=== PATIENT | male | born 1945 | race Caucasian/White ===

== ENCOUNTER → 2019-07-30 11:13 | Outpatient (CLI) | payer MEDICARE, SELFPAY ==
--- NOTE | 2019-07-30 | DI.CT.S_ITS ---
PROCEDURE: CT ABDOMEN W CON INDICATIONS: Left upper quadrant pain TECHNIQUE: After the administration of oral and intravenous contrast, 5 mm thick sections acquired from the diaphragms to the iliac crests. 5 mm thick coronal and sagittal reformats were acquired. For radiation dose reduction, the following was used: automated exposure control, adjustment of mA and/or kV according to patient size. COMPARISON: None. FINDINGS: Image quality: Excellent. Lung bases: Lung bases are clear. Heart size is normal. Solid organs: Liver is normal in size and enhancement. Multiple tiny low density left lobe liver lesions may represent cysts versus hemangiomata. Gallbladder is unremarkable. Biliary system is non dilated. Pancreas enhances normally. Spleen is normal in size and enhancement. No adrenal nodules. Kidneys are normal in size, without hydronephrosis. Peritoneum and bowel: Question wall thickening and narrowing of the proximal to mid descending colon versus peristalsis without proximal bowel dilatation. No free fluid or air. Nodes and vessels: No retroperitoneal or mesenteric adenopathy by size criteria. Aorta and inferior vena cava are normal in size. Bones: No suspicious bony lesions. No vertebral body compression fractures. 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 It may potentially represent bony fragmentation of the facet or partially calcified/ossified facet joint cyst. Miscellaneous: No ventral hernias. IMPRESSION: 1. Question focal wall thickening and narrowing of the proximal to mid descending colon versus peristalsis. 2. Note made of a benign-appearing process subjacent to the left L4-L5 facet resulting in severe stenosis of the left side of the canal at this level. Comment: If this patient has not had recent colonoscopy, would suggest colonoscopy to exclude a left colonic lesion. Dictated by: Frankie Reinoso M.D. on 07/30/2019 at 13:44 Approved by: Frankie Reinoso M.D. on 07/30/2019 at 14:00
[2019-07-30 12:17] LABS: BUN Creatinine Ratio 18.2 (6-22); Blood Urea Nitrogen 16 mg/dL (9-20); Estimated Glomerular Filt Rate > 60.0 mL/min (>60)
== END ==
PROVIDERS: Referring Provider Student in an Organized Health Care Education/Training Program; Visit Provider Student in an Organized Health Care Education/Training Program
DX: R10.12 Left upper quadrant pain (principal); R11.0 Nausea; M48.061 Spinal stenosis, lumbar region without neurogenic claudication
CPT/HCPCS: 36415; 74160; 82565; 84520; 87045; 87177; 87329; 87899; Q9967

== ENCOUNTER → 2019-09-30 09:14 | Outpatient (CLI) | payer MEDICARE, SELFPAY ==
[2019-10-02 10:39] LABS: H. Pylori Antigen Stool Negative (Negative)
== END ==
PROVIDERS: Referring Provider Student in an Organized Health Care Education/Training Program; Visit Provider Student in an Organized Health Care Education/Training Program
DX: R10.12 Left upper quadrant pain (principal); R11.0 Nausea; K29.60 Other gastritis without bleeding
CPT/HCPCS: 87338

== ENCOUNTER → 2022-01-06 10:44 | Outpatient (CLI) | payer MEDICARE, SELFPAY ==
[2022-01-06 13:26] LABS: Prostate Specific Antigen Scrn 1.48 ng/mL (0.1-4.0)
== END ==
PROVIDERS: PCP Family Medicine; Referring Provider Family Medicine; Visit Provider Family Medicine
DX: Z12.5 Encounter for screening for malignant neoplasm of prostate (principal)
CPT/HCPCS: 36415; G0103

== ENCOUNTER → 2022-06-10 10:08 | Outpatient (CLI) | payer MEDICARE, SELFPAY ==
[2022-06-10 10:55] LABS: Influenza A - CEPHEID Flu A NEGATIVE (NEGATIVE); Influenza B - CEPHEID Flu B NEGATIVE (NEGATIVE); Respiratory Syncytial Virus Negative (Negative)
[2022-06-10 10:56] LABS: COVID-19 CEPHEID 4-PLEX PCR Negative (Negative)
== END ==
PROVIDERS: PCP Family Medicine; Visit Provider Registered Nurse
DX: R05.1 Acute cough (principal); Z20.822 Contact with and (suspected) exposure to COVID-19
CPT/HCPCS: 0241U

== ENCOUNTER → 2022-07-19 09:00 | Outpatient (CLI) | payer MEDICARE, SELFPAY ==
[2022-07-19 09:38] LABS: Add Manual Diff / Slide Review NO; Basophils Absolute Auto 0 /uL (0-100); Basophils Percent Auto 0.9 % (0-2); Eosinophils Absolute Auto 200 /uL (0-450); Eosinophils Percent Auto 3.2 % (2-4); Hematocrit 42.9 % (41-53); Hemoglobin 14.4 g/dL (13.5-17.5); Lymphocytes Absolute Auto 1600 /uL (1100-4500); Lymphocytes Percent Auto 32.3 % (25-40); Mean Corpuscular HGB Conc 33.5 % (30-36); Mean Corpuscular Hemoglobin 30.1 PG (26-34); Mean Corpuscular Volume 89.8 fL (80-100); Monocytes Absolute Auto 500 /uL (0-900); Monocytes Percent Auto 10.7 % (3-14); Neutrophils Absolute Auto 2600 /uL (1500-7000); Neutrophils Percent Auto 52.9 % (50-75); Platelet Count 155 X10^3/uL (150-400); Red Blood Cell Count 4.78 X10^6/uL (4.5-5.9); Red Cell Distribution Width 14.5 % (11.6-14.8); White Blood Cell Count 4.9 X10^3/uL (4.5-11.0)
[2022-07-19 10:10] LABS: Alanine Aminotransferase 24 IU/L (<50); Albumin 4.5 g/dL (3.5-5.0); Albumin Globulin Ratio 1.4 (1.0-2.8); Alkaline Phosphatase 56 U/L (38-126); Aspartate Aminotransferase 32 IU/L (17-59); BUN Creatinine Ratio 18.2 (6-22); Bilirubin Total 0.7 mg/dL (0.2-1.3); Blood Urea Nitrogen 16 mg/dL (9-20); Calcium 9.6 mg/dL (8.4-10.2); Carbon Dioxide 30 mmol/L (22-32); Chloride 98 mmol/L (98-107); Cholesterol 164 mg/dL (140-199); Estimated Glomerular Filt Rate > 60 mL/min (>60); Globulin 3.3 g/dL (1.7-4.1); Glucose 112 mg/dL (80-110); HDL Cholesterol 66 mg/dL (40-60); HEMOLYSIS < 15 (0-50); LDL Cholesterol Calculated 74 mg/dL (<100); Potassium 3.8 mmol/L (3.4-5.1); Sodium 137 mmol/L (137-145); Total Protein 7.8 g/dL (6.3-8.2); Triglycerides 119 mg/dL (35-150)
[2022-07-19 10:13] LABS: Creatinine Urine Random 95.7 mg/dL
[2022-07-19 10:14] LABS: Microalbumin Urine Random < 0.6 mg/dL (0-1.6)
[2022-07-19 10:38] LABS: Prostate Specific Antigen Scrn 1.61 ng/mL (0.1-4.0); TSH w/ Reflex to FT4 1.69 uIU/mL (0.47-4.68)
== END ==
PROVIDERS: PCP Family Medicine; Referring Provider Family Medicine; Visit Provider Family Medicine
DX: I10 Essential (primary) hypertension (principal); Z12.5 Encounter for screening for malignant neoplasm of prostate; E78.2 Mixed hyperlipidemia; N40.0 Benign prostatic hyperplasia without lower urinary tract symptoms
CPT/HCPCS: 36415; 80053; 80061; 82043; 82570; 84443; 85025; G0103

== ENCOUNTER 2022-10-13 13:56 | Day surgery (SDC) | payer MEDICARE, SELFPAY ==
--- NOTE | 2022-10-13 | PATH_ITS ---
[facility] Accession Number: [id number] No. of containers..02 Tissue . 01 Material submitted: . PART A: sigmoid colon - SIGMOID POLYP PART B: rectum - RECTAL POLYP . 01 Diagnosis: A. Sigmoid Colon Polyp: Colonic mucosa with no diagnostic abnormality, consistent with polypoid redundancy. Negative for serrated lesion, dysplasia or malignancy. Additional step sections examined. . B. Rectal Polyp: Hyperplastic polyp. MRV 10/21/2022 1433 Local . 01 Electronically signed: . Albert Salguero MD, PhD, Pathologist NPI- [id number] . 01 Gross description: . Part A: SIGMOID POLYP: Received in formalin is 1 fragment(s) of gutierrez, soft tissue measuring 0.3 x 0.3 x 0.2 cm submitted entirely in 1 cassette(s) Part B: RECTAL POLYP: Received in formalin is 1 fragment(s) of gutierrez, soft tissue measuring 0.3 x 0.3 x 0.2 cm submitted entirely in 1 cassette(s) /FADIA 10/18/20222001 Local . 01 Pathologist provided ICD-10: K63.5, K62.1 . 01 CPT . 185363, 153995 Specimen Comment: A courtesy copy of this report has been sent to [phone] Performed at: 01 [facility] [address] [place] [address], [place], [place] [id number] MD Werner Vazquez MD Phone: [phone]
[2022-10-13 14:31] VITALS: BP 122/70; PULSE 78; RESP 16; TEMP 36.3; O2SAT 99; BMI 26.4
[2022-10-13] MEDS: LACTATED RINGERS 1,000 ML 42 ML IV (14:46)
--- NOTE | 2022-10-13 16:03 | PM.HP.1 ---
History of Present Illness History of Present Illness Date Patient Seen: 10/13/22 Time Patient Seen: 16:03 Chief complaint: SDC Narrative: Jaqueline is a 77-year-old man who is here for colonoscopy. He last had 1 about 4 years ago and polyps were removed. [facility] Medical History Allergies (~1950) Benign prostate hyperplasia (~2017) Chicken pox (~1949) Chronic low back pain Hyperlipidemia Hypertension Measles (~1955) Mumps (~1949) Skin cancer (~2018) Tinnitus (~2005) Surgical History Anesthesia History of hip replacement (~2015) Family History Father Dementia Mother Cancer Social History household members: none Smoking Status: Former smoker alcohol intake: current Meds Home Medications and Allergies Home Medications Medication Instructions Recorded Confirmed Type lisinopril 10 mg tablet 10 mg PO DAILY #90 tabs 07/28/22 10/13/22 Rx latanoprost 0.005 % eye drops drp EYE-BOTH 08/15/22 08/15/22 History Allergies Allergy/AdvReac Type Severity Reaction Status Date / Time No Known Drug Allergies Allergy Verified 10/13/22 14:27 Exam Vital Signs (past 8 hours): - 10/13/22 14:31 Temperature 97.3 F L Pulse Rate 78 Respiratory Rate 16 Blood Pressure 122/70 Pulse Oximetry 99 Oxygen Delivery Method Room Air Oxygen Delivery Method Room Air Const General: healthy appearing and No acute distress Assessment & Plan Assessment and plan (1) Colon cancer screening: Status: Acute Plan We reviewed the risks and benefits of colonoscopy for colon cancer screening and he would like to proceed.
--- NOTE | 2022-10-13 16:49 | PM.OP.COLON ---
Operative Date/Time/Diagnoses Date of procedure: 10/13/22 Time of procedure: 16:49 Pre-op diagnosis: History of polyps Post-op diagnosis: same Procedure & Clinicians Study performed: Colonoscopy Same procedure as scheduled: Yes Surgeon: Donal Watermna Procedure Notes Procedure in detail: Surgeon: Donal Waterman MD Anesthesia: Boston Mckeon CRNA Procedure: The patient was brought to the endoscopy suite, placed in left lateral decubitus position. The patient was connected to monitoring devices. A time-out was performed. Sedation was administered. Once the patient was adequately sedated, a digital rectal exam was performed and was normal. The scope was then inserted and advanced with some difficulty to the cecum where the appendiceal orifice was identified and photographed. Colon was quite long and tortuous. The scope was then slowly withdrawn over greater than 6 minutes. The mucosa was thoroughly inspected. There was a 5 mm polyp in the sigmoid colon removed with the Jumbo forceps. There was a 6 mm polyp in the rectum removed with the Jumbo forceps. The scope was retroflexed in the rectum. No other abnormalities were seen. The scope was straightened and removed. The patient was awakened and brought to recovery. Scope withdrawal time: 9 minutes Sedation time: 36 minutes EBL: 5 mL Findings: 5 mm polyp in the sigmoid colon and 6 mm polyp rectum. Post-procedure Disposition: PACU
[2022-10-13 16:51] VITALS: BP 114/67; PULSE 74; RESP 14; TEMP 36.3; O2SAT 99
[2022-10-13 16:57] VITALS: BP 118/62; PULSE 72; RESP 18; O2SAT 99
[2022-10-13 17:02] VITALS: BP 100/63; PULSE 66; RESP 14; TEMP 36.9; O2SAT 98
[2022-10-13 17:06] VITALS: BP 116/72; PULSE 71; RESP 16; TEMP 36.7; O2SAT 100
== END 2022-10-13 17:25 | disposition home or self-care (01) ==
PROVIDERS: PCP Family Medicine; Referring Provider Surgery; Visit Provider Surgery
PROC: 0DJD8ZZ Inspection of Lower Intestinal Tract, Via Natural or Artificial Opening Endoscopic (ICD-10-PCS; CPT 45378; principal; 2022-10-13 15:00)
DX: Z12.11 Encounter for screening for malignant neoplasm of colon (principal); Z86.010 Personal history of colon polyps
CPT/HCPCS: 45380; J2704

== ENCOUNTER → 2022-12-24 09:44 | Outpatient (CLI) | payer MEDICARE, SELFPAY ==
[2022-12-24 11:20] LABS: Cholesterol 222 mg/dL (140-199); HDL Cholesterol 59 mg/dL (40-60); LDL Cholesterol Calculated 137 mg/dL (<100); Triglycerides 132 mg/dL (35-150)
[2022-12-24 11:53] LABS: Testosterone 346 ng/dL (71.8-623)
== END ==
PROVIDERS: PCP Family Medicine; Referring Provider Family Medicine; Visit Provider Family Medicine
DX: Z79.899 Other long term (current) drug therapy (principal); N40.0 Benign prostatic hyperplasia without lower urinary tract symptoms; E78.5 Hyperlipidemia, unspecified; I10 Essential (primary) hypertension
CPT/HCPCS: 36415; 80061; 84403

== ENCOUNTER → 2023-04-03 12:03 | Outpatient (CLI) | payer MEDICARE, SELFPAY ==
[2023-04-03 13:51] LABS: Appearance Urine UA CLEAR; Bilirubin Urine UA NEGATIVE (NEGATIVE); Color Urine UA YELLOW; Glucose Urine UA NEGATIVE (Negative); Ketones Urine UA NEGATIVE (NEGATIVE); Leukocyte Esterase Urine UA NEGATIVE (NEGATIVE); Nitrite Urine UA NEGATIVE (Negative); Occult Blood Urine UA NEGATIVE (Negative); Protein Urine UA NEGATIVE (Negative); Specific Gravity Urine UA <=1.005 (1.000-1.035); Urobilinogen Urine UA 0.2 E.U./dL (0.2); pH Urine UA 6.5 (4.5-8.0)
[2023-04-03 14:08] LABS: Bacteria Urine None Seen; Culture Indicated Urine Cult Not Indicated; RBC Urine None Seen (0-5/HPF); Squamous Epithelial Cell Urine None Seen (0-5/HPF); WBC Urine None Seen (0-5/HPF)
[2023-04-05 09:32] LABS: PSA Free % 22.1 % (.); PSA, Total 1.4 ng/mL (0.0-4.0)
== END ==
PROVIDERS: PCP Family Medicine; Referring Provider Family Medicine; Visit Provider Family Medicine
DX: R39.198 Other difficulties with micturition (principal); N40.0 Benign prostatic hyperplasia without lower urinary tract symptoms
CPT/HCPCS: 36415; 81001; 84153; 84154

== ENCOUNTER → 2023-09-08 08:35 | Outpatient (CLI) | payer MEDICARE, SELFPAY ==
[2023-09-08 09:30] LABS: Add Manual Diff / Slide Review NO; Basophils Absolute Auto 0 /uL (0-100); Basophils Percent Auto 0.6 % (0-2); Eosinophils Absolute Auto 100 /uL (0-450); Eosinophils Percent Auto 2.1 % (2-4); Hematocrit 43.5 % (41-53); Hemoglobin 14.6 g/dL (13.5-17.5); Lymphocytes Absolute Auto 1600 /uL (1100-4500); Lymphocytes Percent Auto 33.2 % (25-40); Mean Corpuscular HGB Conc 33.6 % (30-36); Mean Corpuscular Hemoglobin 30.7 PG (26-34); Mean Corpuscular Volume 91.2 fL (80-100); Monocytes Absolute Auto 400 /uL (0-900); Monocytes Percent Auto 9.1 % (3-14); Neutrophils Absolute Auto 2600 /uL (1500-7000); Platelet Count 159 X10^3/uL (150-400); Red Blood Cell Count 4.77 X10^6/uL (4.5-5.9); Red Cell Distribution Width 13.8 % (11.6-14.8); White Blood Cell Count 4.8 X10^3/uL (4.5-11.0)
[2023-09-08 14:28] LABS: Alanine Aminotransferase 21 IU/L (<50); Albumin 4.7 g/dL (3.5-5.0); Albumin Globulin Ratio 1.7 (1.0-2.8); Alkaline Phosphatase 57 U/L (38-126); Aspartate Aminotransferase 34 IU/L (17-59); BUN Creatinine Ratio 15.2 (6-22); Bilirubin Total 0.7 mg/dL (0.2-1.3); Blood Urea Nitrogen 15 mg/dL (9-20); Calcium 9.4 mg/dL (8.4-10.2); Carbon Dioxide 29 mmol/L (22-32); Chloride 103 mmol/L (98-107); Cholesterol 149 mg/dL (140-199); Estimated Glomerular Filt Rate > 60 mL/min (>60); Globulin 2.8 g/dL (1.7-4.1); Glucose 105 mg/dL (80-110); HDL Cholesterol 56 mg/dL (40-60); HEMOLYSIS < 15 (0-50); LDL Cholesterol Calculated 71 mg/dL (<100); Potassium 4.7 mmol/L (3.4-5.1); Sodium 138 mmol/L (137-145); Total Protein 7.5 g/dL (6.3-8.2); Triglycerides 111 mg/dL (35-150)
[2023-09-08 14:46] LABS: Prostate Specific Antigen Scrn 1.84 ng/mL (0.1-4.0)
[2023-09-09 08:17] LABS: Apolipoprotein B 72 mg/dL (<90)
== END ==
PROVIDERS: PCP Family Medicine; Referring Provider Family Medicine; Visit Provider Family Medicine
DX: I10 Essential (primary) hypertension (principal); Z12.5 Encounter for screening for malignant neoplasm of prostate; E78.2 Mixed hyperlipidemia
CPT/HCPCS: 36415; 80053; 80061; 82172; 84443; 85025; G0103

== ENCOUNTER → 2024-10-30 10:51 | Outpatient (CLI) | payer MEDICARE, SELFPAY ==
[2024-10-30 11:34] LABS: Add Manual Diff / Slide Review NO; Hematocrit 41.9 % (41-53); Hemoglobin 14.3 g/dL (13.5-17.5); Lymphocytes Absolute Auto 1400 /uL (1100-4500); Mean Corpuscular HGB Conc 34.1 % (30-36); Mean Corpuscular Hemoglobin 31.0 PG (26-34); Mean Corpuscular Volume 90.8 fL (80-100); Platelet Count 144 X10^3/uL (150-400)
[2024-10-30 12:01] LABS: Alanine Aminotransferase 32 IU/L (<50); Albumin 4.6 g/dL (3.5-5.0); Albumin Globulin Ratio 1.6 (1.0-2.8); Alkaline Phosphatase 60 U/L (38-126); Blood Urea Nitrogen 15 mg/dL (9-20); Calcium 9.3 mg/dL (8.4-10.2); Carbon Dioxide 28 mmol/L (22-32); Chloride 101 mmol/L (98-107); Cholesterol 163 mg/dL (140-199); Estimated Glomerular Filt Rate > 60 mL/min (>60); Globulin 2.8 g/dL (1.7-4.1); Glucose 108 mg/dL (70-99); HDL Cholesterol 62 mg/dL (40-60); HEMOLYSIS < 15 (0-50); Potassium 4.7 mmol/L (3.4-5.1); Sodium 136 mmol/L (137-145); Total Protein 7.4 g/dL (6.3-8.2); Triglycerides 82 mg/dL (35-150)
[2024-10-30 12:34] LABS: TSH w/ Reflex to FT4 1.09 uIU/mL (0.47-4.68)
== END ==
PROVIDERS: PCP Family Medicine; Referring Provider Family Medicine; Visit Provider Family Medicine
DX: Z00.00 Encounter for general adult medical examination without abnormal findings (principal); E78.5 Hyperlipidemia, unspecified; I10 Essential (primary) hypertension; Z12.5 Encounter for screening for malignant neoplasm of prostate
CPT/HCPCS: 36415; 80053; 80061; 82043; 82172; 82570; 84443; 85025; G0103

== ENCOUNTER → 2024-11-18 09:47 | Outpatient (CLI) | payer MEDICARE, SELFPAY | LOC: CAR 09:48 | PROVIDERS: PCP Family Medicine; Referring Provider Family Medicine; Visit Provider Family Medicine | DX: R00.2 Palpitations (principal); R07.9 Chest pain, unspecified | CPT/HCPCS: 93246 ==

== ENCOUNTER → 2025-03-04 10:26 | Outpatient (CLI) | payer MEDICARE, SELFPAY ==
--- NOTE | 2025-03-04 10:28 | DI.RAD.S_ITS ---
PROCEDURE: XR CHEST 2V
== END ==
LOC: RAD 10:28
PROVIDERS: PCP Family Medicine; Referring Provider Nurse Practitioner Family; Visit Provider Nurse Practitioner Family
DX: R05.9 Cough, unspecified (principal)
CPT/HCPCS: 71046

== ENCOUNTER → 2025-03-25 12:10 | Outpatient (CLI) | payer MEDICARE, SELFPAY ==
--- NOTE | 2025-03-25 12:12 | DI.ECHO.S_ITS ---
[facility] : : [address] : : [place] : : [id number] : : Phone: [phone] Echocardiogram Report + + :Name: PENNY MILLS Study Date: 03/25/2025 Height: 73 in : :[facility] ReadingLocation: Weight: 210 lb : : Gender: Male BSA: 2.2 m2 : :: 1945 Age: 80 yrs BP: 140/74 mmHg: :Reason For Study: SVT, PALPITATIONS : :Ordering Physician: BRIELLE, : :ALEXANDRU Performed By: Reno Calvillo : :Referring: ALEXANDRU SANTORO : + + Interpretation Summary The left ventricle is normal in size. Left ventricular systolic function appears normal without focal wall motion abnormalities. The ejection fraction is estimated to be 60-65%. Diastolic parameters suggest probable normal left ventricular diastolic function and normal filling pressures. The right ventricle is normal in size and function. The right ventricular systolic pressure is estimated to be at least 45 mmHg based on an estimated right atrial pressure of 3 mm Hg. The left atrial size is normal. There is no significant valvular heart disease. The aortic root is normal size. Procedure: A two-dimensional transthoracic echocardiogram with color flow and Doppler was performed. The study quality was technically good. There is no prior echocardiogram noted for this patient. The patient was in normal sinus rhythm during the exam. Left Ventricle: The left ventricle is normal in size. There is normal left ventricular wall thickness. There is no ventricular septal defect visualized. Left ventricular systolic function appears normal without focal wall motion abnormalities. The ejection fraction is estimated to be 60-65%. Diastolic parameters suggest probable normal left ventricular diastolic function and normal filling pressures. Right Ventricle: The right ventricle is normal in size and function. Atria: The left atrial size is normal. Right atrial size is normal. There is no Doppler evidence for an interatrial shunt. Mitral Valve: The mitral valve leaflets appear normal. There is no evidence of stenosis, fluttering, or prolapse. There is no mitral regurgitation noted. Aortic Valve: The aortic valve is trileaflet. The aortic valve is mildly calcified. The aortic valve opens well. No aortic regurgitation is present. Tricuspid Valve: The tricuspid valve leaflets are thin and pliable. There is trace tricuspid regurgitation. The right ventricular systolic pressure is estimated to be at least 45 mmHg based on an estimated right atrial pressure of 3 mm Hg. Pulmonic Valve: The pulmonic valve leaflets are thin and pliable; valve motion is normal. There is trace pulmonic regurgitation. There is no significant valvular heart disease. Great Vessels: The aortic root is normal size. The dimensions of the ascending aorta are normal. The pulmonary artery is not well visualized, but is probably normal size. The IVC is of normal diameter and collapses greater than 50% with a sniff. This suggests a low right atrial pressure of 3 mm Hg. Pericardium/ Pleura There is no pericardial effusion. There is no pleural effusion. MMode/2D Measurements & Calculations LVIDd: 4.4 cm LVOT diam: 1.9 cm LVIDs: 2.6 cm Ao root diam: 3.0 cm FS: 40.7 % asc Aorta Diam: 3.0 cm EPSS: 0.92 cm IVSd: 0.87 cm LVPWd: 1.0 cm LV simmons. diameter/BSA (cm/m^2): 2.0 LV sys. diameter/BSA (cm/m^2): 1.2 LA A2 area: 18.9 cm2 RA long axis: 4.9 cm LA A4 area: 17.4 cm2 RA area: 14.3 cm2 LA length (vol): 5.0 cm RA vol: 35.4 ml LA vol: 55.8 ml RA : 16.1 ml/m2 LA vol index: 25.4 ml/m2 IVC diam: 1.4 cm RVD1 (basal): 3.9 cm RVD2 (mid): 2.5 cm TAPSE: 2.6 cm Doppler Measurements & Calculations Ao V2 max: 206.2 cm/sec LVOT Max German: 132.1 cm/sec Ao V2 mean: 163.4 cm/sec LV V1 max P.0 mmHg Ao max P.0 mmHg LV V1 VTI: 24.8 cm Ao mean P.2 mmHg JACK(I,D): 1.7 cm2 Ao V2 VTI: 42.9 cm JACK(V,D): 1.9 cm2 sev ratio: 0.58 JACK indexed to BSA (cm^2/m^2): 0.76 MV E max german: 89.9 cm/sec TR max german: 325.9 cm/sec MV A max german: 78.5 cm/sec TR max P.5 mmHg MV E/A: 1.1 PA V2 max: 217.8 cm/sec Med Peak E' German: 6.9 cm/sec PA V2 mean: 137.2 cm/sec E/E' med: 13.0 PA mean P.2 mmHg Lat Peak E' German: 7.7 cm/sec PA pr(Accel): 58.4 mmHg E/E' lat: 11.7 E/e' average: 12.3 MV dec time: 0.21 sec SV(LVOT): 71.7 ml Reading Physician:02:43 PM
== END ==
LOC: ECHO 12:11
PROVIDERS: PCP Family Medicine; Referring Provider Internal Medicine Cardiovascular Disease; Visit Provider Internal Medicine Cardiovascular Disease
DX: I47.10 Supraventricular tachycardia, unspecified (principal); R00.2 Palpitations
CPT/HCPCS: 93306